=== PATIENT | female | born 2000 | race Caucasian/White ===

== ENCOUNTER 2021-03-29 00:44 | Emergency (ER) | payer MEDICAID, OTHER ==
[~2021-03-29] VITALS: Ht 160 cm; Wt 56.8 kg
[2021-03-29] MEDS ORDERED: ONDANSETRON 4 MG (ZOFRAN) ORAL DISSOLVE TAB ONE (01:01)
[2021-03-29] MEDS ORDERED: ONDANSETRON 4 MG (ZOFRAN) ORAL DISSOLVE TAB SL STA (01:16)
[2021-03-29] MEDS ORDERED: LACTATED RINGERS 1,000 ML IV ONE (01:30)
[2021-03-29] MEDS ORDERED: PROMETHAZINE INJ 25 MG/ML (PHENERGAN) AMP IVP ONE (01:30)
--- NOTE | 2021-03-29 02:37 | ED GI ---
General Chief Complaint: Abdominal/GI Problems Stated Complaint: NAUSEA/VOMITING Nursing Triage Note: PT C/O N/V/D X 5 HOURS. PT REPORTS TAKING PEPTO AND THROWING UP IMMEDIATELY AFTER. ABDOMEN SOFT AND NON TENDER. Source of Information: Patient Exam Limitations: No Limitations History of Present Illness Date Seen by Provider: Mar 29, 2021 Time Seen by Provider: 00:50 Initial Comments This 20-year-old young lady presents to the emergency room with complaints of nausea, vomiting, diarrhea, and sore throat for about the past 3 hours. Sore throat started after vomiting. She did have a headache which has now resolved. She denies . She has not taken any medications for this. She denies any urinary changes or vaginal symptoms. Allergies and Home Medications Allergies Coded Allergies: No Known Drug Allergies (Unverified , 03/29/21) Patient Home Medication List Home Medication List Reviewed: Yes Vit No.124/Iron/FA ( Vitamin Tablet) 1 Each Tablet, 1 EACH PO DAILY Prescribed by: CAROLINA ASTORGA on 03/29/21 0309 Promethazine HCl (Promethazine HCl) 12.5 Mg Tablet, 12.5 MG PO Q6H PRN for NAUSEA/VOMITING Prescribed by: CAROLINA ASTORGA on 03/29/21 0309 Review of Systems Review of Systems Constitutional: no symptoms reported EENTM: See HPI Respiratory: No Symptoms Reported Cardiovascular: No Symptoms Reported Gastrointestinal: See HPI Genitourinary: No Symptoms Reported Musculoskeletal: no symptoms reported Skin: no symptoms reported Psychiatric/Neurological: See HPI Endocrine: No Symptoms Reported Hematologic/Lymphatic: No Symptoms Reported Past Aydewmw-Msbagr-Ptkixz Hx Patient Social History Tobacco Use?: No Use of E-Cig and/or Vaping dev: No Substance use?: No Alcohol Use?: No Pt feels they are or have been: No Past Medical History Surgeries: Yes Orthopedic (The surgery) Respiratory: No Cardiac: No Neurological: No : No Last Menstrual Period: Feb 26, 2021 Reproductive Disorders: No Genitourinary: No Gastrointestinal: No Musculoskeletal: No Endocrine: No HEENT: No Cancer: No Psychosocial: No Integumentary: No Physical Exam Vital Signs Vital Signs - First Documented 03/29/21 00:50 Temp 36.7 Pulse 97 Resp 12 B/P (MAP) 128/82 (97) Pulse Ox 98 O2 Delivery Room Air Capillary Refill : Height/Weight/BMI Height: '" Weight: lbs. oz. kg; 22.00 BMI Method: General Appearance: WD/WN, no apparent distress HEENT: normal ENT inspection, pharynx normal Neck: normal inspection Respiratory: lungs clear, normal breath sounds, no respiratory distress Cardiovascular: regular rate, rhythm, no edema, no murmur Gastrointestinal: non tender, soft; No distended Extremities: normal inspection, no pedal edema Neurologic/Psychiatric: face burler II-XII nml as tested, no motor/sensory deficits, alert, normal mood/affect, oriented x 3 Skin: normal color, warm/dry Progress/Results/Core Measures Results/Orders My Orders Orders - CAROLINA CHING MD Ondansetron Oral Dissolve Tab (Zofran (03/29/21 01:01) Promethazine Injection (Phenergan Injec (03/29/21 01:30) Ed Iv/Invasive Line Start (03/29/21 01:16) Ondansetron Oral Dissolve Tab (Zofran (03/29/21 01:16) Urine Bedside (03/29/21 01:16) Lactated Ringers (Lr 1000 Ml Iv Solution (03/29/21 01:30) Medications Given in ED Current Medications Medications Dose Ordered Sig/Uriel Route Start Time Stop Time Status Last Admin Dose Admin Lactated Ringer's 1,000 ml @ 0 mls/hr Q0M ONCE IV 03/29/21 01:30 03/29/21 01:31 DC 03/29/21 01:42 1,000 MLS/HR Promethazine HCl 25 mg ONCE ONCE IVP 03/29/21 01:30 03/29/21 01:31 DC 03/29/21 01:41 25 MG Vital Signs/I&O 03/29/21 03/29/21 00:50 03:15 Temp 36.7 36.8 Pulse 97 78 Resp 12 12 B/P (MAP) 128/82 (97) 121/67 Pulse Ox 98 98 O2 Delivery Room Air Room Air Blood Pressure Mean: 97 Progress Progress Note : Progress Note We had attempted to treat with Zofran sublingual tablets. However, she vomited immediately after taking them and her nausea did not improve. Alternatively, she was treated with IV fluids and Phenergan. This did resolve her nausea. A urine test was positive. Patient was given instructions accordingly. See discharge instructions. Departure Impression Primary Impression: Nausea vomiting and diarrhea Additional Impression: Positive test Disposition: 01 HOME, SELF-CARE Condition: Improved Departure-Patient Inst. Decision time for Depature: 02:59 Referrals: CK ORTEGA MD [facility]/LUPE MCNEILL,LOCAL PHYSICIAN (PCP) Primary Care Physician AIDEE ALLEN ANGELA C DO Patient Instructions: Symptoms Add. Discharge Instructions: Start with clear liquids and gradually advance your diet with small quantities of bland food as tolerated. Eating small amounts throughout the day but not eating large meals tends to help control nausea better. You may also use doxylamine (Unisom) 25 mg at bedtime to help with nausea all of the next day. You may use Phenergan (promethazine) as prescribed for nausea and vomiting if needed. Follow-up with a women's health provider as soon as possible. Some options are listed below. Call with questions or concerns. Return to the ER if you have worsening symptoms. All discharge instructions reviewed with patient and/or family. Voiced understanding. Scripts Vit No.124/Iron/FA ( Vitamin Tablet) 1 Each Tablet 1 EACH PO DAILY, #30 TAB Prov: CAROLINA CHING MD 03/29/21 Promethazine HCl (Promethazine HCl) 12.5 Mg Tablet 12.5 MG PO Q6H PRN for NAUSEA/VOMITING, #10 TAB Prov: CAROLINA CHING MD 03/29/21 CAROLINA CHING MD Mar 29, 2021 02:37
[2021-03-29] MEDS ORDERED: PROM12.511 PO (03:09)
[2021-03-29] MEDS ORDERED: PREN-142 PO (03:09)
[2021-03-29 03:15] VITALS: BP 121/67
== END 2021-03-29 03:15 | disposition home or self-care (01) ==
LOC: ER FS 00:48
DX: R11.2 Nausea with vomiting, unspecified (principal); R19.7 Diarrhea, unspecified; Z32.01 Encounter for pregnancy test, result positive
CPT/HCPCS: 84703; 99283

== ENCOUNTER → 2021-04-30 | Outpatient (CLI) | payer MEDICAID ==
[~2021-04-30] MED LIST: PREN-142 PO; PROM12.511 PO
[2021-04-30 19:50] LABS: HEMATOCRIT 34 % (35-52); HEMOGLOBIN 12.1 g/dL (11.5-16.0); MEAN CORPUSCULAR HEMOGLOBIN 33 pg (25-34); MEAN CORPUSCULAR HGB CONC 36 g/dL (32-36); MEAN CORPUSCULAR VOLUME 93 fL (80-99); MEAN PLATELET VOLUME 10.4 fL (9.0-12.2); PLATELET COUNT 214 10^3/uL (130-400); WHITE BLOOD COUNT 8.7 10^3/uL (4.3-11.0)
== END ==
LOC: LAB FS 16:58
PROVIDERS: ATTEND Family Medicine
DX: Z34.01 Encounter for supervision of normal first pregnancy, first trimester (principal); Z3A.00 Weeks of gestation of pregnancy not specified
CPT/HCPCS: 36415; 85027; 86703; 86762; 86780; 86850; 86900; 86901; 87088; 87340

== ENCOUNTER → 2021-05-25 | Outpatient (CLI) | payer MEDICAID | LOC: LAB FS 14:44 | PROVIDERS: ATTEND Family Medicine | DX: Z34.90 Encounter for supervision of normal pregnancy, unspecified, unspecified trimester (principal); Z3A.00 Weeks of gestation of pregnancy not specified | CPT/HCPCS: 87210 ==

== ENCOUNTER → 2021-07-15 | Emergency (ER) | payer MEDICAID ==
[~2021-07-15] VITALS: Ht 160 cm; Wt 72.7 kg
[~2021-07-15] MED LIST changes: +ACETAMINOPHEN 500 MG TAB (TYLENOL) PO ONE; +LACTATED RINGERS 1,000 ML IV ONE
--- NOTE | 2021-07-16 00:13 | ED GU-Female ---
General Chief Complaint: OB > 20 WEEKS Stated Complaint: ABD CRAMPS/VAG BLEEDING Source: patient Exam Limitations: no limitations History of Present Illness Date Seen by Provider: Jul 16, 2021 Time Seen by Provider: 00:05 Initial Comments Patient with a 20 yo G1 female who estimated 19 wk 6 days gestation with uncertainty regarding FDLMP referenced as 02/26/21 who presents with abdominal cramping x3 days with 1 day of episode of pink vaginal bleeding yesterday which currently resolved. Patient reports continuous dull lower abdominal pain/cramping that is continuous for the past several hours. No fluid leakage. Patient's OB is Dr. Ferrell. Denies complications of current . Timing/Duration: just prior to arrival Severity/Quality: mild, other Location: other Radiation: other Activities at Onset: other Sexual [place] History: other Modifying Factors: Improves With Other Associated Symptoms: other Allergies and Home Medications Allergies Coded Allergies: No Known Drug Allergies (Unverified , 03/29/21) Patient Home Medication List Home Medication List Reviewed: Yes Vit No.124/Iron/FA ( Vitamin Tablet) 1 Each Tablet, 1 EACH PO DAILY Prescribed by: CAROLINA ASTORGA on 03/29/21 0309 Promethazine HCl (Promethazine HCl) 12.5 Mg Tablet, 12.5 MG PO Q6H PRN for NAUSEA/VOMITING Prescribed by: CAROLINA ASTORGA on 03/29/21 0309 Review of Systems Review of Systems Constitutional: no symptoms reported, see HPI EENTM: see HPI Respiratory: no symptoms reported, see HPI Cardiovascular: no symptoms reported, see HPI Gastrointestinal: see HPI Genitourinary: see HPI Past Fudrqky-Gmuyoa-Uaoqte Hx Patient Social History Tobacco Use?: No Smoking Status: Never a Smoker Smokeless Tobacco Frequency: Never a User Use of E-Cig and/or Vaping Nathanael: Never a User Substance use?: No Alcohol Use?: No Pt feels they are or have been: No Immunizations Up To Date First/Initial COVID19 Vaccinat: Date ? Second COVID19 Vaccination Jose Juan: Date ? COVID19 Vaccine Dryerman/Woman: Patient does not know Past Medical History Surgeries: Yes Orthopedic Respiratory: No Cardiac: No Neurological: No Reproductive Disorders: No Genitourinary: No Gastrointestinal: No Musculoskeletal: No Endocrine: No HEENT: No Cancer: No Psychosocial: No Integumentary: No Physical Exam Vital Signs Vital Signs - First Documented 07/15/21 23:27 Temp 36.4 Pulse 106 Resp 16 B/P (MAP) 124/72 (89) Pulse Ox 99 O2 Delivery Room Air Capillary Refill : Height, Weight, BMI Height: '" Weight: lbs. oz. kg; 22.00 BMI Method: General Appearance: WD/WN, no apparent distress Cardiovascular: normal peripheral pulses, regular rate, rhythm, no edema Respiratory: lungs clear, normal breath sounds Gastrointestinal: non tender, soft Genital/Rectal: other (External genitalia, no fluid leakage or vaginal spotti ng. No on limited gloved exam.) Neurologic/Psychiatric: glucose and syrup weigher II-XII nml as tested, no motor/sensory deficits, alert, oriented x 3 Focused Exam Sepsis Stage: Ruled Out Progress/Results/Core Measures Suspected Sepsis SIRS Temperature: Pulse: Respiratory Rate: Blood Pressure / Mean: Results/Orders Vital Signs/I&O 07/15/21 23:27 Temp 36.4 Pulse 106 Resp 16 B/P (MAP) 124/72 (89) Pulse Ox 99 O2 Delivery Room Air Capillary Refill : Departure Communication (Admissions) Concern for premature labor, versus abruption, versus previa versus unknown condition at patient who is 20, 6 weeks . heart tones confirmed 158. Case reviewed with Dr. Diaz, OB at [facility] who accepts to L&D unit. Patient transferred by EMS. Impression Primary Impression: Vaginal bleeding before 22 weeks gestation Disposition: T[facility] Condition: Stable Admissions Decision to Admit Reason: Admit from ER (General) (Dr. Diaz) Decision to Admit/Date: Jul 16, 2021 Time/Decision to Admit Time: 00:39 Transfer Transfer Reason: Exceeds level of care Method of Transfer: EMS Departure-Patient Inst. Referrals: JUMA KUHN MD (PCP/Family) Primary Care Physician ARIELLA VASQUEZ DO Jul 16, 2021 00:13
[2021-07-16 00:55] VITALS: BP 124/72
== END ==
LOC: EDUNIT# 23:22 → ER FS 23:23
DX: O20.9 Hemorrhage in early pregnancy, unspecified (principal); Z3A.19 19 weeks gestation of pregnancy

== ENCOUNTER → 2021-07-20 | Outpatient (CLI) | payer MEDICAID ==
[~2021-07-20] MED LIST changes: -ACETAMINOPHEN 500 MG TAB (TYLENOL) PO ONE; -LACTATED RINGERS 1,000 ML IV ONE
== END ==
LOC: LABNPT 07:31
PROVIDERS: ATTEND Family Medicine
DX: O98.212 Gonorrhea complicating pregnancy, second trimester (principal); Z3A.20 20 weeks gestation of pregnancy
CPT/HCPCS: 87491; 87591

== ENCOUNTER → 2021-07-26 | Outpatient (CLI) | payer MEDICAID ==
--- NOTE | 2021-07-26 11:02 | Diagnostic Imaging Report ---
INDICATION: survey. TECHNIQUE: Multiple real-time grayscale images were obtained over the gravid uterus. COMPARISON: None FINDINGS: There is a single live fetus in a cephalic presentation. heart rate was recorded at 152 bpm. Placenta is anterior. Amniotic fluid volume is normal. Cervical length is 3.6 cm. kidneys, bladder and stomach are unremarkable. brain is unremarkable. spine is unremarkable. There is a three-vessel cord. Cord insertion is somewhat limited due to position. In addition, heart and facial anatomy are somewhat limited due to position. Biometrical measurements are as follows: Biparietal 4.76 cm, age 20 weeks 3 days. Head circumference 17.90 cm, age 20 weeks 3 days. Abdominal circumference 16.24 cm, age 21 weeks 3 days. Femur length 3.58 cm, age 21 weeks 3 days. Sonographic estimate age: 21 weeks 0 days. Sonographic estimated date of delivery: 12/06/2021. Estimated Weight: 406 gm (+/- 59 gm). LMP percentile: 47%. heart rate: 152 beats per minute. number: 1 of 1. IMPRESSION: Single live IUP 21 weeks 0 days gestational age. Estimated date of confinement sonographically is 12/06/2021. survey is unremarkable although there was suboptimal imaging of the heart and face anatomy as well as a three-vessel cord insertion due to position. Dictated by: Dictated on workstation # [id number]
== END ==
LOC: RAD FS 08:20
PROVIDERS: ATTEND Family Medicine
DX: Z34.92 Encounter for supervision of normal pregnancy, unspecified, second trimester (principal); Z3A.21 21 weeks gestation of pregnancy
CPT/HCPCS: 36415; 76805; 87491; 87591

== ENCOUNTER → 2021-09-14 | Outpatient (CLI) | payer MEDICAID ==
[2021-09-14 10:28] LABS: HEMATOCRIT 32 % (35-52); MEAN CORPUSCULAR HEMOGLOBIN 34 pg (25-34); MEAN CORPUSCULAR HGB CONC 35 g/dL (32-36); MEAN CORPUSCULAR VOLUME 97 fL (80-99); MEAN PLATELET VOLUME 10.3 fL (9.0-12.2); PLATELET COUNT 232 10^3/uL (130-400); WHITE BLOOD COUNT 8.5 10^3/uL (4.3-11.0)
== END ==
LOC: LAB FS 10:00
PROVIDERS: ATTEND Family Medicine
DX: Z34.92 Encounter for supervision of normal pregnancy, unspecified, second trimester (principal); Z3A.28 28 weeks gestation of pregnancy
CPT/HCPCS: 36415; 82950; 85027; 86780

== ENCOUNTER 2021-10-04 12:37 | Outpatient (CLI) | payer MEDICAID ==
[~2021-10-04] VITALS: Ht 160 cm; Wt 82.9 kg
[2021-10-04 12:45] VITALS: BP 119/64
[2021-10-04 12:46] VITALS: BP 119/64
[2021-10-04 13:15] VITALS: BP 119/64
--- NOTE | 2021-10-05 08:12 | Physician Query-Final Dx ---
Clinic Account Progress/Dx Physician Query: Please give diagnosis Please include # weeks gestation Date of Service Oct 04, 2021 at 12:37 YANNICK,AprOct 05, 2021 08:12
== END 2021-10-04 13:12 | disposition home or self-care (01) ==
LOC: WSo 12:37 → LDRP 12:37 → WSo 13:12
PROVIDERS: ATTEND Obstetrics & Gynecology
DX: O36.8190 Decreased fetal movements, unspecified trimester, not applicable or unspecified (principal); Z3A.00 Weeks of gestation of pregnancy not specified
CPT/HCPCS: 99212

== ENCOUNTER → 2021-10-18 | Outpatient (CLI) | payer MEDICAID ==
--- NOTE | 2021-10-18 11:21 | Diagnostic Imaging Report ---
INDICATION: Follow-up anatomy. TECHNIQUE: Multiple real-time grayscale images were obtained over the gravid uterus. COMPARISON: 07/26/2021. FINDINGS: There is a single live fetus in a cephalic presentation. heart rate was recorded at 172 bpm. Placenta is anterior. Amniotic fluid index is 11.3 cm. There is a four-chamber heart. There is a three-vessel cord with normal insertion. facial anatomy is unremarkable. IMPRESSION: Unremarkable limited follow-up ultrasound. Dictated by: Dictated on workstation # [id number]
== END ==
LOC: RAD FS 08:43
PROVIDERS: ATTEND Family Medicine
DX: O28.3 Abnormal ultrasonic finding on antenatal screening of mother (principal); Z3A.00 Weeks of gestation of pregnancy not specified
CPT/HCPCS: 76816

== ENCOUNTER 2021-11-15 10:23 | Outpatient (CLI) | payer OTHER, MEDICAID ==
[2021-11-15 10:30] VITALS: BP 115/76
[2021-11-15 10:31] VITALS: BP 115/76
[2021-11-15 10:50] VITALS: BP 129/73
[2021-11-15 11:10] VITALS: BP 119/76
--- NOTE | 2021-11-16 08:03 | Physician Query-Final Dx ---
YANNICK,11/16/21 0803: Clinic Account Progress/Dx Physician Query: Please give diagnosis Please include # weeks gestation Date of Service Nov 15, 2021 at 10:23 ARIELLA HASSAN MD 11/17/21 0813: Clinic Account Progress/Dx DIAGNOSIS: Diagnosis 37 weeks No evidence of labor painful contractions reactive NST. YANNICK,AprNov 16, 2021 08:03 ARIELLA HASSAN MD Nov 17, 2021 08:13
--- NOTE | 2021-11-17 07:21 | Discharge Summary ---
Diagnosis/Chief Complaint Date of Admission 11/16/2021 Date of Discharge Discharge Date: Nov 15, 2021 Discharge Diagnosis 37 weeks Painful contractions without labor Reactive NST Discharge Summary Hospital Course Was the Problem List Reviewed?: Yes Hospital Course no evidence of labor Procedures None. Discharge Physical Examination Allergies: Coded Allergies: No Known Drug Allergies (Unverified , 03/29/21) Vitals & I&Os Vital Signs Date Time Temp Pulse Resp B/P (MAP) Pulse Ox O2 Delivery O2 Flow Rate FiO2 11/15/21 11:10 82 18 119/76 (90) Room Air 11/15/21 10:31 36.4 99 Discharge Home Medications Reviewed and agree with Discharge Medication list on patient's Discharge Instruction sheet Instructions to Patient/Family Please see electronic discharge instructions given to patient. ARIELLA HASSAN MD Nov 17, 2021 07:21
== END 2021-11-15 11:30 | disposition home or self-care (01) ==
LOC: WSo 10:23 → LDRP 10:23 → WSo 11:30
PROVIDERS: ATTEND Obstetrics & Gynecology
DX: O62.9 Abnormality of forces of labor, unspecified (principal); Z3A.37 37 weeks gestation of pregnancy
CPT/HCPCS: 99213

== ENCOUNTER 2021-12-03 05:55 | Inpatient (IN) | payer OTHER, MEDICAID ==
[~2021-12-03] VITALS: Ht 162.6 cm; Wt 90.0 kg
[2021-12-03] VITALS (73 sets, daily range): BP systolic 113–159; BP diastolic 54–96
[2021-12-03 06:47] LABS: BASOPHILS % (AUTO) 0 % (0-10); EOSINOPHILS # (AUTO) 0.1 10^3/uL (0.0-0.3); EOSINOPHILS % (AUTO) 1 % (0-10); HEMATOCRIT 31 % (35-52); HEMOGLOBIN 10.6 g/dL (11.5-16.0); LYMPHOCYTES # (AUTO) 2.3 10^3/uL (1.0-4.0); LYMPHOCYTES % (AUTO) 26 % (12-44); MEAN CORPUSCULAR HEMOGLOBIN 33 pg (25-34); MEAN CORPUSCULAR HGB CONC 34 g/dL (32-36); MEAN CORPUSCULAR VOLUME 96 fL (80-99); MEAN PLATELET VOLUME 11.1 fL (9.0-12.2); MONOCYTES # (AUTO) 0.9 10^3/uL (0.0-1.0); MONOCYTES % (AUTO) 10 % (0-12); NEUTROPHILS # (AUTO) 5.6 10^3/uL (1.8-7.8); NEUTROPHILS % (AUTO) 62 % (42-75); PLATELET COUNT 178 10^3/uL (130-400); WHITE BLOOD COUNT 8.9 10^3/uL (4.3-11.0)
[2021-12-03 06:47] LABS: BILIRUBIN,URINE NEGATIVE (NEGATIVE); CLARITY,URINE SL CLOUDY; COLOR,URINE YELLOW; GLUCOSE, URINE (UA) NEGATIVE (NEGATIVE); KETONES,URINE NEGATIVE (NEGATIVE); LEUKOCYTE ESTERASE ,URINE TRACE (NEGATIVE); NITRITE,URINE NEGATIVE (NEGATIVE); PROTEIN,URINE NEGATIVE (NEGATIVE)
[2021-12-03 06:59] LABS: BACTERIA,URINE TRACE /HPF; SQUAMOUS EPITHELIAL CELL,UR RARE /HPF; WBC,URINE RARE /HPF
[2021-12-03 07:00] LABS: ALBUMIN 3.1 GM/DL (3.2-4.5); POTASSIUM 3.9 MMOL/L (3.6-5.0)
[2021-12-03 07:02] LABS: CALCIUM 8.9 MG/DL (8.5-10.1)
[2021-12-03 07:03] LABS: TOTAL PROTEIN 6.3 GM/DL (6.4-8.2)
[2021-12-03 07:04] LABS: BILIRUBIN,TOTAL 0.2 MG/DL (0.1-1.0)
[2021-12-03 07:06] LABS: CREATININE SERUM 0.68 MG/DL (0.60-1.30)
[2021-12-03] MEDS: D5 LR IV SOLUTION 1,000 ML IV SCH ×3 (07:17→22:59)
[2021-12-03] MEDS ORDERED: OXYTOCIN PRE-MIX DRIP 500 ML IV SCH (08:45)
[2021-12-03] MEDS ORDERED: BUTORPHANOL INJ 2 MG/ML (STADOL) VIAL ONE (12:29)
[2021-12-03] MEDS: BUTORPHANOL INJ 2 MG/ML (STADOL) VIAL IV PRN ×2 (12:31→14:27)
--- NOTE | 2021-12-03 13:20 | History & Physical-OB ---
OB - Chief Complaint & HPI Date/Time Date of Admission: Date of Admission: Dec 03, 2021 at 05:55 Date seen by a Provider: Dec 03, 2021 Time Seen by a Provider: 07:20 Chief Complaint/History OB-Reason for Admission/Chief: Induction of Labor Hx : 1 Expected Date of Delivery: Dec 05, 2021 Gestational Age in Weeks: 39 Gestational Age in Days: 5 Indication for induction: maternal discomfort Admission Nurse Assessment Rev: Yes Allergies and Home Medications Allergies Coded Allergies: No Known Drug Allergies (Unverified , 03/29/21) Patient Home Medication List Home Medication List Reviewed: Yes Vit No.124/Iron/FA ( Vitamin Tablet) 1 Each Tablet, 1 EACH PO DAILY Prescribed by: CAROLINA ASTORGA on 03/29/21 0309 OB - History Hx of Present Care: Yes Ultrasounds: Normal mid trimester US Obstetrical Complications: None Medical Complications: None Information Induced Hypertension: No Maternal Gestational Diabetes: No Hemorrhage: No Obstetrical History Hx : 1 Patient Past Medical History none Social History/Family History Alcohol Use: Denies Use Recreational Drug Use: No Smoking Cessation: Never smoker Immunizations First/Initial COVID19 Vaccine: Date ? Second COVID19 Vaccination: Date ? Hepatitis A: No Hepatitis B: No OB - Admission Exam Physical Exam Vitals: Vital Signs 12/03/21 12/03/21 12/03/21 06:25 08:45 11:30 Temp 36.5 Pulse 69 Resp 18 B/P (MAP) 113/54 (73) Pulse Ox 99 O2 Delivery Room Air HEENT: NCAT Lungs: Clear Abdomen: Gravid Extremities: Normal Cervical Dilatation: Fingertip Membranes: Intact Heart Rate: 140's Accelerations: Accelerations Present Decelerations: No Decelerations Short Term Variability: Present Longterm Variability: Average (6-25) Contractions on Admission: None Labs Laboratory Tests Test 12/03/21 06:05 12/03/21 06:25 Range/Units Urine Color YELLOW Urine Clarity SL CLOUDY Urine pH 6.0 5-9 Urine Specific [place] 1.020 1.016-1.022 Urine Protein NEGATIVE NEGATIVE Urine Glucose (UA) NEGATIVE NEGATIVE Urine Ketones NEGATIVE NEGATIVE Urine Nitrite NEGATIVE NEGATIVE Urine Bilirubin NEGATIVE NEGATIVE Urine Urobilinogen 0.2 < = 1.0 MG/DL Urine Leukocyte Esterase TRACE H NEGATIVE Urine RBC (Auto) NEGATIVE NEGATIVE Urine RBC NONE /HPF Urine WBC RARE /HPF Urine Squamous Epithelial Cells RARE /HPF Urine Crystals NONE /LPF Urine Bacteria TRACE /HPF Urine Casts NONE /LPF Urine Mucus NEGATIVE /LPF Urine Culture Indicated NO White Blood Count 8.9 4.3-11.0 10^3/uL Red Blood Count 3.20 L 3.80-5.11 10^6/uL Hemoglobin 10.6 L 11.5-16.0 g/dL Hematocrit 31 L 35-52 % Mean Corpuscular Volume 96 80-99 fL Mean Corpuscular Hemoglobin 33 25-34 pg Mean Corpuscular Hemoglobin Concent 34 32-36 g/dL Red Cell Distribution Width 14.8 H 10.0-14.5 % Platelet Count 178 130-400 10^3/uL Mean Platelet Volume 11.1 9.0-12.2 fL Immature Granulocyte % (Auto) 1 % Neutrophils (%) (Auto) 62 42-75 % Lymphocytes (%) (Auto) 26 12-44 % Monocytes (%) (Auto) 10 0-12 % Eosinophils (%) (Auto) 1 0-10 % Basophils (%) (Auto) 0 0-10 % Neutrophils # (Auto) 5.6 1.8-7.8 10^3/uL Lymphocytes # (Auto) 2.3 1.0-4.0 10^3/uL Monocytes # (Auto) 0.9 0.0-1.0 10^3/uL Eosinophils # (Auto) 0.1 0.0-0.3 10^3/uL Basophils # (Auto) 0.0 0.0-0.1 10^3/uL Immature Granulocyte # (Auto) 0.1 0.0-0.1 10^3/uL Sodium Level 137 135-145 MMOL/L Potassium Level 3.9 3.6-5.0 MMOL/L Chloride Level 109 H 98-107 MMOL/L Carbon Dioxide Level 17 L 21-32 MMOL/L Anion Gap 11 5-14 MMOL/L Blood Urea Nitrogen 8 7-18 MG/DL Creatinine 0.68 0.60-1.30 MG/DL Estimat Glomerular Filtration Rate 128 BUN/Creatinine Ratio 12 Glucose Level 86 70-105 MG/DL Calcium Level 8.9 8.5-10.1 MG/DL Corrected Calcium 9.6 8.5-10.1 MG/DL Total Bilirubin 0.2 0.1-1.0 MG/DL Aspartate Amino Transf (AST/SGOT) 13 5-34 U/L Alanine Aminotransferase (ALT/SGPT) 13 0-55 U/L Alkaline Phosphatase 140 H 40-136 U/L Total Protein 6.3 L 6.4-8.2 GM/DL Albumin 3.1 L 3.2-4.5 GM/DL OB - Assessment/Plan/Diagnosis Assessment Assessment: induction of labor Admission Dx G1 @ 39 wks 5 days desires IOL Admission Status: Inpatient Order (span 2 midnights) Reason for Inpatient Admission: IOL Plan Plan: Induction Induction Method: per Pitocin Protocol (FB) JAYLEEN CH MD Dec 03, 2021 13:20
[2021-12-03] MEDS ORDERED: fentaNYL 2 mcg/ml BUPIVA 0.125 100 ML ONE (15:26)
[2021-12-03] MEDS: fentaNYL 2 mcg/ml BUPIVA 0.125 100 ML EPI SCH ×2 (16:47→23:55)
[2021-12-03] MEDS ORDERED: LACTATED RINGERS 1,000 ML IV SCH (17:00)
[2021-12-03] MEDS ORDERED: ONDANSETRON 4 MG/2 ML (SDV) Z0FRAN IV PRN (17:00)
[2021-12-03] MEDS ORDERED: diphenhydrAMINE 50 MG/ML INJ (BENADRYL) IV PRN (17:00)
[2021-12-03] MEDS ORDERED: METOCLOPRAMIDE INJ 10 MG/2 ML (REGLAN) IV PRN (17:00)
[2021-12-03] MEDS ORDERED: NALOXONE 0.4 MG/ML 1 ML (NARCAN) VIAL IV PRN ×2 (17:00)
[2021-12-03] MEDS: CATHETER FLUSH 10 ML SYR IV SCH ×2 (22:59→23:00)
[2021-12-04] VITALS (33 sets, daily range): BP systolic 84–168; BP diastolic 40–811
[2021-12-04] MEDS ORDERED: METOCLOPRAMIDE INJ 10 MG/2 ML (REGLAN) IV ONE (04:45)
[2021-12-04] MEDS ORDERED: CITRIC ACID/SOB CIT (BICITRA) 30 ML UDC PO ONE (04:45)
[2021-12-04] MEDS ORDERED: FAMOTIDINE 20MG/2ML IV (PEPCID) IV ONE (04:45)
[2021-12-04] MEDS ORDERED: LACTATED RINGERS 1,000 ML IV PRN ×2 (04:45)
[2021-12-04] MEDS ORDERED: IBUP-1773 PO (05:28)
[2021-12-04] MEDS ORDERED: OXYC5CAP18 PO (05:29)
[2021-12-04] MEDS ORDERED: MEASLES,MUMPS,RUBELLA 1 EA INJ SC SCH (05:30)
[2021-12-04] MEDS ORDERED: TETANUS,DIPTH,PERTUSS P/F (BOOSTRIX) 0.5 ML VIAL IM SCH (05:30)
[2021-12-04] MEDS ORDERED: ceFAZolin 2 GM IV Premixed 50 ML IV ONE (05:30)
[2021-12-04] MEDS ORDERED: NALOXONE 0.4 MG/ML 1 ML (NARCAN) VIAL IV PRN (05:30)
[2021-12-04] MEDS ORDERED: METHYLERGONOVINE 0.2 MG/ML (METHERGINE) AMP IM ONE (05:30)
[2021-12-04] MEDS ORDERED: METHYLERGONOVINE 0.2 MG/ML (METHERGINE) AMP ONE (05:30)
[2021-12-04] MEDS ORDERED: ceFAZolin 2 GM IV Premixed 50 ML ONE (05:31)
[2021-12-04] MEDS ORDERED: BUPIVACAINE 0.25% 30 ML (SENSORCAINE) VIAL ONE (05:36)
[2021-12-04] MEDS ORDERED: ONDANSETRON 4 MG/2 ML (SDV) Z0FRAN ONE (05:36)
[2021-12-04] MEDS ORDERED: OXYTOCIN PRE-MIX DRIP 500 ML IV ONE ×2 (05:36→05:40)
[2021-12-04] MEDS ORDERED: KETOROLAC 30 MG/ML VIAL ONE (05:36)
[2021-12-04] MEDS ORDERED: fentaNYL INJ 100 MCG/2 ML AMP ONE (05:37)
[2021-12-04] MEDS: KETOROLAC 30 MG/ML VIAL IV SCH ×3 (06:45→20:56)
[2021-12-04] MEDS: CATHETER FLUSH 10 ML SYR IV SCH ×3 (06:47→22:12)
[2021-12-04] MEDS: OXYTOCIN PRE-MIX DRIP 500 ML IV SCH ×2 (07:30→10:52)
--- NOTE | 2021-12-04 08:36 | OPERATIVE REPORT ---
DATE OF SERVICE: PREOPERATIVE DIAGNOSIS: G1 at 39 weeks and 6 days gestation with failed induction. POSTOPERATIVE DIAGNOSIS: Delivered female, Apgars 9 and 9. PROCEDURE: Primary low transverse section. SURGEON: Dr. Diaz. ANESTHESIA: Spinal. ESTIMATED BLOOD LOSS: 550 mL. COMPLICATIONS: None. CONDITION: Stable. FINDINGS: Female in the occiput posterior position. Normal-appearing uterus, tubes and ovaries. INDICATIONS: The patient was admitted on 12/03/2021 for elective induction of labor. She had a Oshea catheter with Pitocin induction. The Oshea balloon was placed with 80 mL within the internal os and 60 within the vaginal balloon and was removed 1400 with cervical dilation of 2.5 cm. AROM was performed shortly after revealing clear fluid. Pitocin was increased upon admission until regular contractions and then following removal and AROM, increased to obtain cervical change, which was unsuccessful. Once Pitocin was close to maxing out with no cervical change beyond 3 cm, it was held for an hour and restarted at 2 and then increased through the night and cervix with no change beyond 3.5 to 4 cm. Discussed with the patient options and agreed to proceed with section. PROCEDURE IN DETAIL: After the risks, benefits and alternatives of the procedure were described to the patient, she was taken to the operating room and also had had epidural during induction process, was not adequate for and spinal was placed without difficulty. Anesthesia was confirmed and she was placed in the dorsal supine position with a leftward tilt and prepped and draped in the usual sterile fashion with Oshea catheter and SCDs in place. A low transverse uterine incision was made, and this incision was carried through to the underlying layer of the fascia, which was extended laterally with Freed scissors. The superior and inferior aspect of the incision was grasped with Kochers, elevated and the rectus muscles dissected off. The peritoneum was identified, entered and incision extended superiorly and inferiorly with good visualization of the bladder. The bladder blade was inserted and the vesicouterine peritoneum was dissected off the lower uterine segment. A low transverse uterine incision was made, and this incision was extended laterally and the delivered with the above findings. Nose and mouth were suctioned. Cord was clamped and cut, and the infant handed off to the waiting nurse team. A cord segment was held. Cord blood was drawn, and the placenta was expressed and held. The uterus was exteriorized and cleared of all clots and debris. Pitocin was initiated following delivery of the infant. The uterine incision was closed with a running locked 0 Monocryl suture. A second of the same suture was used to imbricate this incision and hemostasis was appreciated. Atony was encountered with no appreciation for bleeding and Methergine was administered IM x1. The gutters were cleared of all clots and debris and the uterus was returned to the abdomen and a piece of Interceed was placed over the anterior uterine incision. The peritoneum was closed with a running 2-0 Vicryl and hemostasis was appreciated at the rectus layer. The fascia was closed with 0 Vicryl with running lateral to the midline crossing in the midline. The subcutaneous layer was irrigated copiously, and hemostasis was appreciated. The subcu was reapproximated with plain gut stitch. The skin was closed with subcuticular 4-0 Monocryl sutures and skin affix mesh dressing was applied. The patient tolerated the procedure well. Sponge, lap, needle and instrument counts were correct. Massage of the uterus prior to transferring to her bed expressed approximately 200 mL of clot. An 800 mcg of Cytotec was placed OR and Oshea catheter was left in place. She was taken to the recovery room awake and in stable condition. Job ID: [id number] DocumentID: [id number] Dictated Date: 12/04/2021 07:15:59 Biomass Technician Date: 12/04/2021 08:35:07 Dictated By: Mimi Diaz MD
[2021-12-04] MEDS: ACETAMINOPHEN 500 MG TAB (TYLENOL) PO SCH ×3 (11:54→22:12)
--- NOTE | 2021-12-04 13:23 | Anesthesia-Regional Post-Op ---
Regional Patient Condition Mental Status: Alert, Oriented x3 Circulation: Same as Pre-Op Headache: Absent Sensation: Full Recovery Motor Block: Absent Post Op Complications Complications None Follow Up Care/Instructions Patient Instructions None needed. Anesthesia/Patient Condition Patient is doing well, no complaints, stable vital signs, no apparent adverse anesthesia problems. No complications reported per nursing. JAIRO FELIPE CRNA Dec 04, 2021 13:23
[2021-12-04] MEDS: DOCUSATE SODIUM 100 MG (COLACE) CAP PO SCH ×2 (20:56→22:11)
[2021-12-05 00:19] VITALS: BP 125/80
[2021-12-05] MEDS: ACETAMINOPHEN 500 MG TAB (TYLENOL) PO SCH ×4 (00:22→18:39)
[2021-12-05] MEDS: KETOROLAC 30 MG/ML VIAL IV SCH ×2 (00:44→03:16)
[2021-12-05 03:17] VITALS: BP 124/90
[2021-12-05] MEDS ORDERED: IBUPROFEN 600 MG (MOTRIN) TAB PO SCH (06:00)
[2021-12-05 06:35] LABS: BASOPHILS % (AUTO) 0 % (0-10); EOSINOPHILS # (AUTO) 0.1 10^3/uL (0.0-0.3); EOSINOPHILS % (AUTO) 1 % (0-10); HEMATOCRIT 25 % (35-52); HEMOGLOBIN 8.3 g/dL (11.5-16.0); LYMPHOCYTES # (AUTO) 1.7 10^3/uL (1.0-4.0); LYMPHOCYTES % (AUTO) 20 % (12-44); MEAN CORPUSCULAR HEMOGLOBIN 33 pg (25-34); MEAN CORPUSCULAR HGB CONC 34 g/dL (32-36); MEAN CORPUSCULAR VOLUME 98 fL (80-99); MEAN PLATELET VOLUME 11.2 fL (9.0-12.2); MONOCYTES # (AUTO) 0.7 10^3/uL (0.0-1.0); MONOCYTES % (AUTO) 9 % (0-12); NEUTROPHILS % (AUTO) 70 % (42-75); PLATELET COUNT 141 10^3/uL (130-400); WHITE BLOOD COUNT 8.5 10^3/uL (4.3-11.0)
[2021-12-05 08:15] VITALS: BP 123/79
[2021-12-05] MEDS: DOCUSATE SODIUM 100 MG (COLACE) CAP PO SCH ×2 (08:42→21:00)
[2021-12-05] MEDS: IBUPROFEN 600 MG (MOTRIN) TAB PO SCH ×3 (08:42→21:18)
--- NOTE | 2021-12-05 10:23 | Postpartum Progress Note ---
Note Note Day # 1 Subjective: Patient is without complaints. Ambulating, voiding. Tolerating a regular diet without nausea or vomiting. Normal lochia. Pain is well controlled with oral pain medications. Physical Exam: General - Alert and oriented, no apparent distress Abdomen - Soft, appropriately tender to palpation, non-distended, fundus firm at umbilicus; incision c/d/i Extremities - no edema, negative Tristin's bilaterally Assessment: Post- day # 1, status post PLTCS Recovering well, hemodynamically stable Acute blood loss anemia Plan: Routine care. Encourage breast feeding. Encourage ambulation. Ferrous sulfate supplementation. Plan for discharge tomorrow Vitals - Labs Vital Signs - I&O Vital Signs Date Time Temp Pulse Resp B/P (MAP) Pulse Ox O2 Delivery O2 Flow Rate FiO2 12/05/21 08:15 36.5 67 16 123/79 (94) 97 Room Air 12/05/21 03:17 35.9 68 16 124/90 (101) 98 Room Air 12/05/21 00:19 36.2 69 16 125/80 (95) 97 Room Air 12/04/21 20:46 36.3 77 20 125/71 (89) 98 Room Air 12/04/21 16:23 36.2 88 18 113/63 (80) 99 Room Air 12/04/21 11:53 36.4 99 18 131/85 (100) Room Air I & O 12/05/21 07:00 Intake Total 2000 ml Output Total 40 ml Balance 1960 ml Labs Laboratory Tests 12/05/21 06:18: White Blood Count 8.5, Red Blood Count 2.54L, Hemoglobin 8.3#L, Hematocrit 25L, Mean Corpuscular Volume 98, Mean Corpuscular Hemoglobin 33, Mean Corpuscular Hemoglobin Concent 34, Red Cell Distribution Width 15.4H, Platelet Count 141, Mean Platelet Volume 11.2, Immature Granulocyte % (Auto) 1, Neutrophils (%) (Auto) 70, Lymphocytes (%) (Auto) 20, Monocytes (%) (Auto) 9, Eosinophils (%) (Auto) 1, Basophils (%) (Auto) 0, Neutrophils # (Auto) 6.0, Lymphocytes # (Auto) 1.7, Monocytes # (Auto) 0.7, Eosinophils # (Auto) 0.1, Basophils # (Auto) 0.0, Immature Granulocyte # (Auto) 0.1 KEE MASCORRO FOOT SETTER Dec 05, 2021 10:23
[2021-12-05 15:00] VITALS: BP 123/71
[2021-12-05 21:18] VITALS: BP 136/71
[2021-12-06 02:34] VITALS: BP 136/70
[2021-12-06] MEDS: ACETAMINOPHEN 500 MG TAB (TYLENOL) PO SCH ×2 (02:34→07:48)
[2021-12-06] MEDS: IBUPROFEN 600 MG (MOTRIN) TAB PO SCH ×2 (02:34→07:48)
[2021-12-06] MEDS: DOCUSATE SODIUM 100 MG (COLACE) CAP PO SCH (07:48)
[2021-12-06 07:50] VITALS: BP 123/67
--- NOTE | 2021-12-06 10:06 | Postpartum Progress Note ---
Note Note Day # 2 Subjective: Patient is without complaints. Ambulating, voiding. Tolerating a regular diet without nausea or vomiting. Normal lochia. Pain is well controlled with oral pain medications. Physical Exam: General - Alert and oriented, no apparent distress Abdomen - Soft, appropriately tender to palpation, non-distended, fundus firm at umbilicus; incision c/d/i Extremities - no edema, negative Tristin's bilaterally Assessment: Post- day # 2, status post PLTCS Recovering well, hemodynamically stable Acute blood loss anemia Plan: Routine care. Encourage breast feeding. Encourage ambulation. Ferrous sulfate supplementation. Plan for discharge today Vitals - Labs Vital Signs - I&O Vital Signs Date Time Temp Pulse Resp B/P (MAP) Pulse Ox O2 Delivery O2 Flow Rate FiO2 12/06/21 07:50 36.0 77 16 123/67 (85) 99 Room Air 12/06/21 02:34 36.6 79 16 136/70 (92) 98 Room Air 12/05/21 21:18 36.3 89 16 136/71 (92) 98 Room Air 12/05/21 15:00 36.4 73 16 123/71 (88) 98 Room Air KEE MASCORRO APRN Dec 06, 2021 10:06
--- NOTE | 2021-12-06 10:08 | Discharge Inst-Women's Service ---
Discharge Inst-Women's Serv Depart Medication/Instructions New, Converted or Re-Newed RX: Transmitted to Pharmacy Consults/Follow Up Additional Follow Up: Yes (1wk incision check w/Joe or Radha; 6wk PP appt w/Dr. Velasquez) Activity Activity: Activity as Tolerated Driving Instructions: No Driving for 1 Week NO SMOKING: NO SMOKING Nothing Inside Vagina: No Douching, No [place], No Tampons Diet Discharge Diet: No Restrictions Symptoms to Report to : Bleeding Excessive, Fever Over 101 Degrees F, Vaginal Bleeding Increase For Any Problems or Questions: Contact Your Physician Skin/Wound Care Infection Signs and Symptoms: Increased Redness, Foul Odor of Wound, Skin Itchy or Has a Rash, Temperature Above 101 F Operative Area Clean and Dry: Keep Incision Clean/Dry Stitches/Gavin/Dermabond: Dermabond Bathing Instructions: RADHA Bojorquez APRN Dec 06, 2021 10:07
== END 2021-12-06 10:15 | disposition home or self-care (01) | DRG 787 ==
LOC: LDRP 05:55 → WS 12-04 07:37
PROVIDERS: ADMIT Obstetrics & Gynecology; ATTEND Obstetrics & Gynecology
PROC: 3E033VJ Introduction of Other Hormone into Peripheral Vein, Percutaneous Approach (ICD-10-PCS; 2021-12-03)
PROC: 10D00Z1 Extraction of Products of Conception, Low, Open Approach (ICD-10-PCS; principal; 2021-12-04 05:54)
DX: O61.0 Failed medical induction of labor (principal); D62 Acute posthemorrhagic anemia; Z37.0 Single live birth; O90.81 Anemia of the puerperium; Z3A.39 39 weeks gestation of pregnancy
CPT/HCPCS: 36415; 80053; 81000; 85025; 86850; 86900; 86901; 94664